=== PATIENT | female | born 1955 | race Asian ===

== ENCOUNTER → 2016-04-08 | Outpatient (CLI) | payer MEDICARE, OTHER | LOC: MC.RAD 13:47 | DX: Z12.31 Encounter for screening mammogram for malignant neoplasm of breast (principal) ==

== ENCOUNTER → 2017-08-04 | Outpatient (CLI) | payer MEDICARE | LOC: COL.PUL 07:46 | DX: I08.8 Other rheumatic multiple valve diseases (principal); I27.21 Secondary pulmonary arterial hypertension ==

== ENCOUNTER 2018-01-09 08:44 | Day surgery (SDC) | payer MEDICARE ==
[~2018-01-09] VITALS: Ht 157.5 cm; Wt 61.3 kg
[2018-01-09] MEDS ORDERED: NORVASC 5MG5 MG/TAB PO (09:04)
[2018-01-09] MEDS ORDERED: ASPIRIN 81M81 MG/TA2 PO (09:04)
[2018-01-09] MEDS ORDERED: LIPITOR 10MG10 MG PO (09:04)
[2018-01-09] MEDS ORDERED: REVATIO20 MG PO (09:05)
[2018-01-09] MEDS ORDERED: CALCIUM CARBON650 M2 PO (09:05)
[2018-01-09] MEDS ORDERED: GLUCOPHAGE500 MG/TAB PO (09:06)
[2018-01-09] MEDS ORDERED: N-ACETYL-L-CYSTEINE PO (09:07)
[2018-01-09] MEDS ORDERED: KRILL OIL 5001 EACH PO (09:08)
[2018-01-09] MEDS ORDERED: FLAXSEED OIL1000 MG PO (09:08)
[2018-01-09] MEDS ORDERED: MASON NATURAL500 MG PO (09:09)
[2018-01-09] MEDS ORDERED: CHROMIUM PICOLI1 TA8 PO (09:09)
[2018-01-09] MEDS ORDERED: MASON NATURAL2000 IU PO (09:10)
[2018-01-09] MEDS ORDERED: MULTIPLE VITAMI1 CAP PO (09:10)
[2018-01-09] MEDS ORDERED: RITUXAN 10100 MG/10 IV (09:10)
[2018-01-09 09:11] VITALS: BP 142/90; PULSE 81; TEMP 98
[2018-01-09] MEDS ORDERED: PRIL40 PO (09:11)
[2018-01-09 10:20] VITALS: BP 116/80; PULSE 78
[2018-01-09 10:35] VITALS: BP 124/78; PULSE 66
[2018-01-09 10:50] VITALS: BP 121/73; PULSE 65
[2018-01-09 11:55] VITALS: BP 122/70; PULSE 56
== END 2018-01-09 10:57 | disposition home or self-care (01) ==
LOC: SDCO 08:44
DX: Z12.11 Encounter for screening for malignant neoplasm of colon (principal); K64.0 First degree hemorrhoids; E11.9 Type 2 diabetes mellitus without complications; K21.9 Gastro-esophageal reflux disease without esophagitis; M33.20 Polymyositis, organ involvement unspecified; I27.20 Pulmonary hypertension, unspecified; J84.10 Pulmonary fibrosis, unspecified; M85.80 Other specified disorders of bone density and structure, unspecified site; I10 Essential (primary) hypertension; Z90.710 Acquired absence of both cervix and uterus; Z79.82 Long term (current) use of aspirin; Z79.84 Long term (current) use of oral hypoglycemic drugs; Z88.2 Allergy status to sulfonamides
CPT/HCPCS: J2704; J7030

== ENCOUNTER → 2018-01-22 | Outpatient (CLI) | payer MEDICARE ==
[~2018-01-22] MED LIST: ASPIRIN 81M81 MG/TA2 PO; CALCIUM CARBON650 M2 PO; CHROMIUM PICOLI1 TA8 PO; FLAXSEED OIL1000 MG PO; GLUCOPHAGE500 MG/TAB PO; KRILL OIL 5001 EACH PO; LIPITOR 10MG10 MG PO; MASON NATURAL2000 IU PO; MASON NATURAL500 MG PO; MULTIPLE VITAMI1 CAP PO; N-ACETYL-L-CYSTEINE PO; NORVASC 5MG5 MG/TAB PO; PRIL40 PO; REVATIO20 MG PO; RITUXAN 10100 MG/10 IV
== END ==
LOC: MC.RAD 10:25
DX: Z12.31 Encounter for screening mammogram for malignant neoplasm of breast (principal)

== ENCOUNTER → 2019-03-07 | Outpatient (CLI) | payer MEDICARE | LOC: COL.PUL 07:26 | DX: J84.10 Pulmonary fibrosis, unspecified (principal) ==

== ENCOUNTER → 2019-05-31 | Outpatient (CLI) | payer MEDICARE | LOC: MC.RAD 09:17 | DX: Z12.31 Encounter for screening mammogram for malignant neoplasm of breast (principal); Z98.82 Breast implant status ==

== ENCOUNTER → 2019-10-14 | Outpatient (CLI) | payer MEDICARE | LOC: COL.PUL 07:31 | DX: I27.20 Pulmonary hypertension, unspecified (principal) ==

== ENCOUNTER → 2019-10-16 | Outpatient (CLI) | payer MEDICARE | LOC: COL.PUL 07:00 | DX: I27.20 Pulmonary hypertension, unspecified (principal) ==

== ENCOUNTER → 2020-07-14 | Outpatient (CLI) | payer MEDICARE | LOC: MC.RAD 14:14 | DX: Z12.31 Encounter for screening mammogram for malignant neoplasm of breast (principal) ==

== ENCOUNTER → 2020-09-18 | Outpatient (CLI) | payer MEDICARE | LOC: COL.PUL 10:00 | DX: I08.1 Rheumatic disorders of both mitral and tricuspid valves (principal); I27.21 Secondary pulmonary arterial hypertension ==

== ENCOUNTER → 2020-09-28 | Outpatient (CLI) | payer MEDICARE | LOC: COL.PUL 06:25 | DX: I27.21 Secondary pulmonary arterial hypertension (principal) ==

== ENCOUNTER → 2021-09-08 | Outpatient (CLI) | payer MEDICARE | LOC: MC.RAD 08:15 | DX: Z12.31 Encounter for screening mammogram for malignant neoplasm of breast (principal) ==

== ENCOUNTER 2023-03-26 21:43 | Emergency (ER) | payer MEDICARE ==
[~2023-03-26] VITALS: Ht 157.5 cm; Wt 63.6 kg
[2023-03-26 21:57] VITALS: BP 158/79; TEMP 97.5
[2023-03-26 22:47] VITALS: PULSE 64
== END 2023-03-26 22:48 | disposition home or self-care (01) ==
LOC: COL.ER 21:43
DX: S62.101G Fracture of unspecified carpal bone, right wrist, subsequent encounter for fracture with delayed healing (principal); W19.XXXD Unspecified fall, subsequent encounter